=== PATIENT | female | born 1945 | race Caucasian/White ===

== ENCOUNTER → 2017-06-18 | Outpatient (CLI) | payer MEDICARE, BC ==
[~2017-06-18] MED LIST: ACET-1966 PO; FLU45SYR17 IM; FLU45SYR25 IM ONLY; FLUT16SP19 NS; HYDR25SU51 RC; MONT10TA PO; NAPR220C12 PO; PANT40TA65 PO; PNEU0.5D3 IM; TRIA-20 PO; furosemide
--- NOTE | 2017-06-18 11:05 | EKG ---
FACILITY: [facility] PATIENT NAME: DALE RAMEY : [id number] MR: [id number] V: [id number] EXAM DATE: ORDERING PHYSICIAN: DMITRY APPLE TECHNOLOGIST: DERIC Clemons Reason : IRREG HEARTBEAT Blood Pressure : / mmHG Vent. Rate : 066 BPM Atrial Rate : 066 BPM P-R Int : 178 ms QRS Dur : 082 ms QT Int : 420 ms P-R-T Axes : 058 -51 074 degrees QTc Int : 440 ms Sinus rhythm Left axis deviation Decreased R wave progression anteriorly Abnormal ECG No previous ECGs available Confirmed by NATALIA GATICA ([id number]) on 06/18/2017 12:08:06 PM Referred By: DMITRY APPLE Confirmed By:NATALIA GATICA
== END ==
LOC: RESP 10:55
PROVIDERS: ATTEND Nurse Practitioner Primary Care
DX: R00.2 Palpitations (principal); R94.31 Abnormal electrocardiogram [ECG] [EKG]

== ENCOUNTER → 2017-07-02 | Outpatient (CLI) | payer MEDICARE, BC ==
--- NOTE | 2017-07-05 07:43 | RT HOLTER TEST ---
FACILITY: [facility] PATIENT NAME: DALE RAMEY : [id number] MR: [id number] V: [id number] EXAM DATE: ORDERING PHYSICIAN: SELINA VENEGAS TECHNOLOGIST: GUANAKITO Hook-up date: 2017-07-02 11:15:00 Duration: 47:52:00 Test Indications: IRREGUAL HEART RYTHM Medications: [id number] QRS complexes 54090 Ventricular ectopics which represent 5 % of total QRS comp. 325 Supraventricular ectopics which represent <1 % of total QRS comp. * Paced QRS complexes which represent % of total QRS comp. VENTRICULAR ECTOPY 58659 Isolated 0 Bigeminal Cycles 7 Couplets 1 Runs 3 Beats in Runs 3 Beats LONGEST at 88 BPM at 23:33:22 2017-07-02 3 Beats FASTEST at 88 BPM at 23:33:22 2017-07-02 SUPRAVENTRICULAR ECTOPY 292 Isolated 8 Couplets 4 Runs 17 Beats in Runs 7 Beats LONGEST at 189 BPM at 15:02:56 2017-07-02 4 Beats FASTEST at 200 BPM at 15:35:51 2017-07-02 HEART RATES 57 MIN at 04:13:13 2017-07-03 89 AVG 193 MAX at 15:35:51 2017-07-02 LONGEST RR 1.488 secs at 23:17:09 2017-07-03 S-T LEVELS Channel 1 -12.800 mm MIN at 11:15:00 2017-07-02 -12.800 mm MAX at 11:15:00 2017-07-02 Channel 2 -12.800 mm MIN at 11:15:00 2017-07-02 -12.800 mm MAX at 11:15:00 2017-07-02 Channel 3 -12.800 mm MIN at 11:15:00 2017-07-02 -12.800 mm MAX at 11:15:00 2017-07-02 Sinus rhythm Premature ventricular complexes Premature supraventricular complexes Confirmed by LUNA PETERSON ([id number]) on 07/05/2017 7:42:35 AM Referred By: Overread By: LUNA PETERSON
== END ==
LOC: RESP 02:48
PROVIDERS: ATTEND Internal Medicine
DX: I49.9 Cardiac arrhythmia, unspecified (principal)
CPT/HCPCS: 93225; 93226

== ENCOUNTER → 2017-10-31 | Outpatient (CLI) | payer MEDICARE, BC ==
[2017-10-31 11:09] LABS: LDL CHOLESTEROL 99 mg/dl
== END ==
LOC: LAB 10:17
PROVIDERS: ATTEND Internal Medicine Geriatric Medicine
DX: E67.3 Hypervitaminosis D (principal); I10 Essential (primary) hypertension
CPT/HCPCS: 36415; 82040; 82247; 82306; 82310; 82374; 82435; 82465; 82565; 82947; 83718; 84075; 84132; 84155; 84295; 84450; 84460; 84478; 84520; 85027

== ENCOUNTER → 2018-06-03 | Outpatient (CLI) | payer MEDICARE, BC ==
[~2018-06-03] MED LIST changes: +FLU180SY11 IM
--- NOTE | 2018-06-03 10:51 | RADIOLOGY IMAGING REPORT ---
FACILITY: [facility] - [place] PATIENT NAME: Shyla Muller : 1945 MR: [id number] V: [id number] EXAM DATE: ORDERING PHYSICIAN: BAILEE CHANEY TECHNOLOGIST: Location: [facility] [place] Patient: Shyla Muller : 1945 Visit/Account:[id number] Date of Sevice: 06/03/2018 SHOULDER LEFT W/O CONTRAST INDICATIONS: Left shoulder pain times several months DATE: 06/03/2018 10:00 AM TECHNIQUE: Multisequence, multiplanar noncontrast MR imaging was performed of the left shoulder. COMPARISON: Shoulder radiographs August 10, 2007. FINDINGS: ROTATOR CUFF: A tear of the anterior and mid supraspinatus footprint is full-thickness. A few fibers are retracted but remain lateral to the glenoid rim; most are inferior to the acromion. There is some heterogeneity of the infraspinatus foot. With predominantly bursal sided fraying. The glenohumeral j oint freely communicates with the subacromial subdeltoid bursa through the aforementioned defect, and there is a relatively large volume of fluid in the subcoracoid bursa. Teres minor and subscapularis are intact. Rotator cuff muscle bulk and signal are normal. BICEPS LABRAL COMPLEX: The long head biceps tendon is within the bicipital groove and can be followed to the biceps anchor. Fraying at the biceps anchor is mild, and the labrum otherwise appears intact. OSSEOUS STRUCTURE: No fracture or marrow replacing lesion. Degenerative findings are mild at the AC j oint. IMPRESSION: 1. Full-thickness tear of the supraspinatus footplate involving the anterior and mid section of the t endon. 2. There is some heterogeneity of the infraspinatus with predominantly bursal sided fraying. 3. Mild degenerative findings at the AC joint. 4. Relatively large volume of fluid in subacromial subdeltoid bursa freely communicates with the humberto ohumeral joint through the supraspinatus defect. Report Dictated By: Melissa Dee MD at 06/03/2018 10:33 AM Report E-Signed By: Melissa Dee MD at 06/03/2018 10:47 AM WSN:[id number]
== END ==
LOC: MRI 02:53
PROVIDERS: ATTEND Family Medicine Sports Medicine
DX: M75.42 Impingement syndrome of left shoulder (principal); M25.512 Pain in left shoulder

== ENCOUNTER → 2018-11-05 | Outpatient (CLI) | payer MEDICARE, BC | LOC: LAB 14:57 | PROVIDERS: ATTEND Internal Medicine Geriatric Medicine | DX: R30.0 Dysuria (principal); B95.7 Other staphylococcus as the cause of diseases classified elsewhere | CPT/HCPCS: 81001; 87088 ==

== ENCOUNTER → 2019-01-01 | Outpatient (CLI) | payer MEDICARE, BC ==
[2019-01-01 11:47] LABS: PLATELET COUNT, AUTOMATED 215 K/uL (150-450)
[2019-01-01 12:29] LABS: LDL CHOLESTEROL 117 mg/dl
== END ==
LOC: ZZSENDIN 10:25
PROVIDERS: ATTEND Internal Medicine Geriatric Medicine
DX: E78.00 Pure hypercholesterolemia, unspecified (principal); E67.3 Hypervitaminosis D
CPT/HCPCS: 36415; 82040; 82247; 82306; 82310; 82374; 82435; 82465; 82565; 82947; 83718; 84075; 84132; 84155; 84295; 84450; 84460; 84478; 84520; 85025